=== PATIENT | female | born 1985 ===

== ENCOUNTER 2017-10-09 14:25 | Inpatient (IN) ==
--- OUTSIDE RECORDS SUMMARY | 2017-10-09 18:03 | External Medical Summary | Continuity of Care Document ---
:1985 Author Organization [facility] Address [address] [place], [place] [id number] Phone Allergies, Adverse Reactions, Alerts Substance Reaction Severity Status No Known Drug Allergies Unknown Active Medications Medication Instructions Dosage Effective Dates (start - stop) Status Comments Drug Treatment Unknown Problems Condition Effective Dates (start - stop) Clinical Status Suprvsn of preg w poor reprodctv or - obstet hx, second tri 19 weeks gestation of - Suprvsn of preg w poor reprodctv or - obstet hx, second tri Encounter for suprvsn of normal - , second trimester 19 weeks gestation of - Suprvsn of preg w poor reprodctv or - obstet hx, second tri Encounter for suprvsn of normal - , second trimester 14 weeks gestation of - Procedures Procedure Date Detailed Compled OB Ultrasound, Single Fetus Results Test Name Date and Time Measure Units Reference Range Abnormal Flag Comments Unknown Advance Directives Directive Yes / No Effective Date File Name Unknown Encounters Encounter Practice Location Reason(s) Diagnoses Date Provider Care Team Description For Visit Members [facility] Suprvsn of Milner In [facility] preg w poor 7-201 [facility] [place], reprodctv or 7 [address], obstet hx, Medical [place], [place], [facility] [id number], Gala Richter [facility] for suprvsn 120, tel:[phone] of normal Lazaro, [address] , [place], [facility] [id number] [email or web address] , [place]. weeks tel:+31 gestation of [phone] [facility] Suprvsn of Milner In Womens Ultrasound preg w poor 7- Monserrat. Health PA, reprodctv or 7 700 [address], obstet hx, Medical [place], [place], second [facility] [id number], weeks , Gerald gestation of 120, tel:+[phone] Lazaro [address] [place], [id number] , [place]. tel: [phone] [facility] Suprvsn of Milner Referring In Womens preg w poor 1-201 Monserrat. Provider: Health PA, reprodctv or 7 700 Monserrat Milner [address], obstet hx, Medical K, 700 [place], [place], [facility] [id number], triEncskylar Richter, [facility] for suprvsn 120, Gerald 120, tel:[phone] of normal Lazaro [place], [address] , [place], [place], second [id number]. [email or web address] , [place]. tel:316 weeks tel: [phone] gestation of [id number] Family History Family Member Diagnosis Age At Onset Paternal Grandmother Stroke No family history of Uterine Cancer No family history of Pulmonary Embolism No family history of Ovarian Cancer Father Hypertension No family history of Colon Cancer No family history of Breast Cancer Paternal aunt Thrombosis 40 Immunizations Vaccine Date Status Comments Influenza, injectable, completed Source: New Immunization Record quadrivalent, preservative free, 3 yrs or older Payers Payer name Insurance type Covered libertarian ID Authorization(s) [facility] [id number] Medicaid [facility] [id number] Medicaid Social History Type Description Quantity Date Captured Unknown Vital Signs Date / Height Weight BMI Pulse Blood Temperature Respiratory Body Head BMI Time: Rate Pressure Rate Surface Circumference percentile Area Unknown Chief Complaint And Reason For Visit Unknown Chief Complaint And Reason For Visit Reason For Referral Reason For Referral Unknown Plan Of Care Date Type Action Status Appointment Kayleigh Hathaway BOOKED Future Order: Radiology Order OB Detailed Complete Ultrasound Ordered ([id number]) Date Type Problem Goal Intervention Status Start Date Unknown. History Of Present Illness Encounter Date Complaint History Of Present Illness This patient has no known history of present illness Functional Status Encounter Date Functional Assessment Cognitive Assessment Unknown Medications Administered Medication Instructions Dosage Effective Dates (start - stop) Status Comments Drug Treatment Unknown Instructions Date Instruction Additional Information HIV and other routine tests risk factors identified by history anticipated course of care nutrition and weight gain counseling, special diet toxoplasmosis precautions (cats / raw meat) exercise indications for ultrasound influenza vaccine environmental / work hazards travel tobacco (ask, advise, assess, assist and arrange) alcohol illicit / recreational drugs use of any medications (including supplements, vitamins, herbs, OTC drugs) smoking counseling domestic violence seat belt use genetic testing new ob handbook Zika virus assessment & precautions dentist, wt gain 25-30#
--- OUTSIDE RECORDS SUMMARY | 2017-10-09 18:03 | External Medical Summary | Continuity of Care Document ---
:1985 Author Organization [facility] Address [address] [place], [place] [id number] Phone Allergies, Adverse Reactions, Alerts Substance Reaction Severity Status No Known Drug Allergies Unknown Active Medications Medication Instructions Dosage Effective Dates Status Comments (start - stop) 28 mg take 1 tablet by Not Available - Active iron-800 mcg oral route every tablet day Problems Condition Effective Dates (start - stop) Clinical Status Suprvsn of preg w poor reprodctv or - obstet hx, second tri Encounter for suprvsn of normal - , second trimester 24 weeks gestation of - Suprvsn of preg [...] second trimester 14 weeks gestation of - Suprvsn of preg w poor reprodctv or - obstet hx, third tri Supervision of other high risk - pregnancies, third trimester 31 weeks gestation of - Supervision of other high risk - pregnancies, third trimester 29 weeks gestation of - Procedures Procedure Date Unknown Results Test Name Date and Time Measure Units Reference Range Abnormal Flag Comments Unknown Advance Directives Directive Yes / No Effective Date File Name Unknown Encounters Encounter Practice Location Reason(s) Diagnoses Date Provider Care Team Description For Visit Members Linda [place] Suprvsn of preg Mar-2 Milner In Womens w poor 6- Monserrat. Health PA, reprodctv or 8 700 [address], obstet hx, [place], [place], [facility] [id number], triSupervision , [facility] of other high 120, tel:[phone] risk Lazaro, [address] [facility], [place], [facility] [id number] , [place]. weeks gestation tel: of [phone] Linda [place] Mar-0 Milner In Womens 8- Monserrat. Health PA, 8 700 [address], [place], [place], [place] [id number], Dr [facility] 120, tel:+[phone] Lazaro [address] [place], [id number] , [place]. tel: [phone] Linda [place] Supervision of Mar-0 Milner Referring In Womens other high risk Monserrat. Provider: Health PA, pregnancies, 8 700 Monserrat Milner [address], [facility] K, 700 [place], [place], [id number] [facility] [id number], weeks gestation , [facility] of 120, Gerald 120, tel:+[phone] Lazaro [place], [address] [place], [place], [id number]. , [place]. tel:+316 tel: [phone] Linda [place] Suprvsn of preg Ernie-3 Milner In Womens w poor - Monserrat. Health PA, reprodctv or 8 700 [address], obstet hx, [place], [place], [facility] [id number], Gala Richter, [facility] for suprvsn of 120, tel:[phone] normal Lazaro, [address] , [place], second [id number] [email or web address] , [place]. weeks gestation tel: of [phone] Linda [place] Suprvsn of preg Dec-2 Milner In Womens w poor - Monserrat. Health PA, reprodctv or 7 700 [address], obstet hx, [place], [place], [facility] [id number], Gala Richter, [facility] for suprvsn of 120, tel:+21 normal Lazaro, [address] , [place], second [id number] , [place]. weeks gestation tel: of [phone] [facility] Suprvsn of preg Dec-2 Milner In Womens Ultrasound w poor 7-201 Monserrat. Health PA, reprodctv or 7 [address], obstet hx, Medical [place], [place], second tri19 Center [id number], weeks gestation Gerald Richter [place] of 120, tel:+21 Lazaro, [address] [place], [id number] , [place]. tel: [phone] [facility] Suprvsn of preg Nov-2 Milner Referring In Womens w poor 1- Monserrat. Provider: Health PA, reprodctv or 7 700 Monserrat Milner [address], obstet hx, Medical K, 700 [place], [place], [facility] [id number], Gala Richter, [facility] [place] for suprvsn of 120, Gerald 120, tel:+21 normal Lazaro [place], [address] , [place], [place], second [id number] [id number]. [email or web address] , [place]. tel:+316 weeks gestation tel: [phone] of [id number] Family History Family Member Diagnosis Age At Onset Paternal Grandmother Stroke No family history of Uterine Cancer No family history of Pulmonary Embolism No family history of Ovarian Cancer Father Hypertension No family history of Colon Cancer No family history of Breast Cancer Paternal aunt Thrombosis 40 Immunizations Vaccine Date Status Comments Tdap completed Source: New Immunization Record Influenza, injectable, completed Source: New Immunization Record quadrivalent, preservative free, 3 yrs or older Payers Payer name Insurance type Covered libertarian ID Authorization(s) [facility] - [id number] Medicaid [employer] - [id number] Medicaid [employer] [place] [id number] Medicaid Social History Type Description Quantity Date Captured Unknown Vital Signs Date / Height Weight BMI Pulse Blood Temperature Respiratory Body Head BMI Time: Rate Pressure Rate Surface Circumference percentile Area Unknown Chief Complaint And Reason For Visit Unknown Chief Complaint And Reason For Visit Reason For Referral Reason For Referral Unknown Plan Of Care Date Type Action Status Appointment Kayleigh Hathaway BOOKED Appointment Kayleigh Hathaway BOOKED Appointment Kayleigh Hathaway BOOKED Appointment Kayleigh Hathaway BOOKED Appointment Kayleigh Hathaway BOOKED Future Order: Radiology Order OB Detailed Complete Ultrasound Ordered ([id number]) Date Type Problem Goal Intervention Status Start [...]
--- OUTSIDE RECORDS SUMMARY | 2017-10-09 18:03 | External Medical Summary | Continuity of Care Document ---
:1985 Author Organization [facility] Address [address] [place], [place] [id number] Phone Allergies, Adverse Reactions, Alerts Substance Reaction [...] preg Mar-2 Milner In Womens w poor 6-201 Monserrat. Health PA, reprodctv or 8 700 [address], obstet hx, [place], [place], [facility] [id number], triSupervision , [facility] of other high 120, tel:[phone] risk Lazaro, [address] [facility], [place], [facility] [id number] [email or web address] , [place]. weeks gestation tel: of [phone] Linda [place] Mar-2 Milner In Womens 3-201 Monserrat. Health PA, 8 700 [address], [place], [place], [place] [id number], Dr [facility] 120, tel:+[phone] Lazaro [address] [place], [id number] , [place]. tel: [phone] Linda [place] Supervision of Mar-0 Milner Referring In Womens other high risk 6- Monserrat. Provider: Health PA, pregnancies, 8 700 Monserrat Milner [address], [facility] Medical K, 700 [place], [place], [email or web address] [facility] [id number], weeks gestation , [facility] of 120, Gerald 120, tel:+[phone] Lazaro [place], [address] [place], [id number]. , [place]. tel:+316 tel: [phone] Linda [place] Suprvsn of preg Ernie-3 Milner In Womens w poor 1-201 Monserrat. Health PA, reprodctv or 8 700 [address], obstet hx, [place], [facility] [id number], Gala Richter, [facility] for suprvsn of 120, tel:[phone] normal Lazaro, [address] , [place], second [email or web address] , [place]. weeks gestation tel: of [phone] Linda [place] Suprvsn of preg Dec-2 Milner In Womens w poor 7-201 Monserrat. Health PA, reprodctv or 7 700 [address], obstet hx, [place], [place], [facility] [id number], Gala Richter, [facility] for suprvsn of 120, tel:+21 normal Lazaro, [address] , [place], second [id number] [email or web address] , [place]. weeks gestation tel: of [phone] [facility] Suprvsn of preg Dec-2 Milner In Womens Ultrasound w poor 7-201 Monserrat. Health PA, reprodctv or 7 700 [address], obstet hx, Medical [place], second tri19 Center [id number], weeks gestation Gerald Richter [place] of 120, tel:+21 Lazaro, [address] [place], [id number] , [place]. tel: [phone] [facility] Suprvsn of preg Nov-2 Milner Referring In Womens w poor 1- Monserrat. Provider: Health PA, reprodctv or 7 700 Monserrat Milner [address], obstet hx, Medical K, 700 [place], [place], [facility] [id number], Gala Richter, [facility] [place] for suprvsn of 120, Gerald 120, tel:+21 normal Lazaro [place], [address] , [place], [place], second [id number]. [email or web address] , [place]. tel:+316 weeks gestation tel: [phone] of [id number] Family History Family Member Diagnosis Age At [...] older Payers Payer name Insurance type Covered democrat ID Authorization(s) [facility] - [id number] Medicaid [employer] - [id number] Medicaid [employer] [place] [id number] Medicaid Social History Type Description Quantity Date [...] Radiology Order OB Detailed Complete Ultrasound Ordered ([id number]) Date Type Problem Goal Intervention Status Start [...]
--- OUTSIDE RECORDS SUMMARY | 2017-10-09 18:03 | External Medical Summary | Continuity of Care Document ---
:1985 Author Organization [facility] Address [address] [place], [place] [phone] Phone Allergies, Adverse Reactions, Alerts Substance Reaction Severity Status No Known Drug Allergies Unknown Active Medications Medication Instructions Dosage Effective Dates Status Comments (start - stop) Tylenol 325 mg tablet take 1 tablet by oral - Active route every 4 hours as needed as needed Problems Condition Effective Dates (start - stop) Clinical Status Encounter for suprvsn of normal - , third trimester 36 weeks gestation of - Suprvsn of preg [...] third trimester 29 weeks gestation of - Encounter for suprvsn of normal - , third trimester Encounter For Screening For - Streptococcus B 36 weeks gestation of - Encounter for suprvsn of normal - , third trimester 35 weeks gestation of - Procedures Procedure Date Unknown Results Test Name Date and Time Measure Units Reference Range Abnormal Flag Comments Unknown Advance Directives Directive Yes / No Effective Date File Name Unknown Encounters Encounter Practice Location Reason(s) Diagnoses Date Provider Care Team Description For Visit Members [facility] Encounter for Apr-3 Milner In Womens suprvsn of normal 0-201 Monserrat. Health PA, , third 8 700 [address] [email or web address] weeks Medical 1522, gestation of [facility] Gerald Richter, 120, , [place], [place], tel:[phone] , [place]. tel: [phone] Linda [place] Encounter for Apr-2 Milner In Womens suprvsn of normal 4-201 Monserrat. Health PA, , third 8 700 [address] trimesterEncounte Medical 1522, r For [facility], Screening For Gerald Richter, Streptococcus B36 120, [id number], weeks gestation [place], of [place], tel:[phone] , [place]. tel: [phone] Linda [place] Encounter for Apr-1 Milner In Womens suprvsn of normal 7-201 Monserrat. Health ROBB, , third 8 700 [address] [email or web address] weeks Medical 1522, gestation of [facility] Gerald Richter, 120, [id number], [place], tel:[phone] , [place]. tel: [phone] Linda [place] Apr-1 Milner In Womens 1-201 Monserrat. Health PA, 8 700 PO Box Medical 1522, [facility], Gerald Richter, 120, [id number], [place], tel:[phone] , [place]. tel: [phone] Linda [place] Suprvsn of preg w Mar-2 Milner In Womens poor reprodctv or 6-201 Monserrat. Health ROBB, obstet hx, third 8 700 PO Box triSupervision of Medical 1522, other high risk [facility], pregnancies, Gerald Richter, third [id number] 120, [id number], weeks gestation [place], [place] of [place], tel: [phone] , [place]. tel: [phone] [facility] Supervision of Mar-0 Milner Referring In Womens other high risk 6-201 Monserrat. Provider: Health ROBB, pregnancies, 8 700 Monserrat Milner PO Box third [id number] Medical K, 700 1522, weeks gestation [facility], of , [facility] [place], 120, Gerald 120, , Lazaro [place], [place], [place], tel:[phone] [id number]. , [place]. tel: tel: [phone] [facility] Suprvsn of preg w Ernie-3 Milner In Womens poor reprodctv or 1-201 Monserrat. Health ROBB, obstet hx, second 8 700 [address] Box triEncounter for Medical 1522, suprvsn of normal [facility], , second Gerald Richter, [email or web address] weeks 120, , gestation of [facility] [place], tel: [phone] , [place]. tel: [phone] [facility] Suprvsn of preg w Dec-2 Milner In Womens poor reprodctv or 7-201 Monserrat. Health ROBB, obstet hx, second 7 700 [address] Box triEncounter for Medical 1522, suprvsn of normal [facility], , second Gerald Richter, [email or web address] weeks 120, [id number], gestation of [place], [place], tel:[phone] , [place]. tel: [phone] [facility] Suprvsn of preg w Dec-2 Milner In Womens Ultrasound poor reprodctv or 7-201 Monserrat. Health ROBB, obstet hx, second 7 700 [address] tri19 weeks Medical 1522, gestation of [facility], Gerald Richter, 120, [id number], [place], [place], tel: [phone] , [place]. tel: [phone] Associates [place] Suprvsn of preg w Nov- Milner Referring In Womens poor reprodctv or 1-201 Monserrat. Provider: pita Vaughn hx, second 7 700 Monserrat Milner PO Box [facility] K, 700 1522, supr[facility]n of [facility] [place], , second Dr, [facility] Center Dr [id number], weeks 120, Gerald 120, , gestation of Lazaro [place], ANNE, ANNE, tel: [phone] [id number]. , [place]. tel: tel: [phone] Family History Family Member Diagnosis Age At [...] older Payers Payer name Insurance type Covered alliance party ID Authorization(s) [facility] - [id number] Medicaid [employer] [place] [id number] Medicaid [employer] [place] [id number] Medicaid Social History Type Description Quantity Date [...] Radiology Order OB Detailed Complete Ultrasound Ordered ([id number]) Date Type Problem Goal Intervention Status Start Date Unknown. History Of Present Illness Encounter Date Complaint History Of Present Illness This patient has no known history of present illness Functional Status Encounter Date Functional Assessment Cognitive Assessment Unknown Medications Administered Medication Instructions Dosage Effective Dates (start - stop) Status Comments Drug Treatment Unknown Instructions Date Instruction Additional Information labor signs group B strep screening HIV and other routine tests risk factors [...]
--- OUTSIDE RECORDS SUMMARY | 2017-10-09 18:04 | External Medical Summary ---
:1985 Author Name GENERATED, SYSTEM Care Team Providers Name Role Phone UNASSIGNED DOCTOR MD EUGENIA DOCTOR Primary Care Provider [phone] Reason For Visit Chief Complaint 37 WEEKS - CONTRACTIONS Social History Functional Status Vital Signs Results Problems Encounter Diagnosis No relevant problems exist. Encounters Encounter Diagnosis No relevant problems exist. Plan of Care Procedures Completed , on 02/28/2009 12:00 AM Immunizations No immunizations administered or ordered. Hospital Course Hospital Discharge Instructions Allergies, Adverse Reactions, Alerts This section is client services representative of the current allergy information, at the time of the CCD generation. In the case of regeneration of the CCD, the allergy information may not reflect the state of known allergies at the time of the CCD' s subject visit. Latex Allergy has not been assessed.IV Contrast Allergy has not been assessed. Medication Medication reconciliation has not been performed.
--- OUTSIDE RECORDS SUMMARY | 2017-10-09 18:04 | External Medical Summary | Continuity of Care Document ---
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 Health PA, reprodctv or 8 700 [address], obstet , [place], [place], [facility] [id number], triSupervision , [facility] of other high 120, tel:+[phone] risk Lazaro, [address] [place], [place], [facility] [id number] , [place]. weeks gestation tel:+06-28 of [phone] Linda [place] Supervision of Mar-0 Milner Referring In Womens other high risk Monserrat. Provider: Health PA, pregnancies, 8 700 Monserrat Milner [address], [facility], 700 [place], [place], [id number] Center [facility] [id number], weeks gestation , [facility] [place] of 120, Gerald 120, tel:+[phone] Lazaro [place], [address] [place], [place], [id number]. , [place]. tel: tel: [phone] [facility] Suprvsn of preg Ernie-3 Milner In Womens w poor - Monserrat. Health PA, reprodctv or 8 700 [address], obstet hx, [place], [facility] [id number], Gala Richter [facility] for suprvsn of 120, tel:+[phone] normal Lazaro, [address] , [place], second [id number] , [place]. weeks gestation tel:+06-28 of [phone] [facility] Suprvsn of preg Dec-2 Milner In Womens w poor - Monserrat. Health PA, reprodctv or 7 700 [address], obstet [place], [facility] [id number], Gala Richter [facility] for suprvsn of 120, tel:+[phone] normal Lazaro, [address] , [place], second [id number] , [place]. weeks gestation tel:+06-28 of [phone] Linda [place] Suprvsn of preg Dec-2 Milner In Womens Ultrasound w poor 7- Monserrat. Health PA, reprodctv or 7 700 [address], obstet hx, Medical [place], [place], second [facility] [id number], weeks gestation , Gerald of 120, tel:+[phone] Lazaro, [address] [place], [id number] , [place]. tel: [phone] Linda [place] Suprvsn of preg Nov-2 Milner Referring In Womens w poor 1- Monserrat. Provider: Health PA, reprodctv or 7 700 Monserrat Milner [address], obstet hx, Medical K, 700 [place], [place], second Center Medical [id number], [facility] , [facility] [place] for suprvsn of 120, Gerald 120, tel:+[phone] normal Lazaro [place], [address] , [place], [place], second [id number]. , [place]. tel:+316 weeks gestation tel: [phone] of [id number] Family History Family Member Diagnosis Age At [...] older Payers Payer name Insurance type Covered green party ID Authorization(s) [facility] [id number] Medicaid [employer] [place] [id number] Medicaid [employer] [place] [id number] Medicaid Social History Type Description Quantity Date Captured Alcohol Use Details No Caffeine Use Details Unknown Tobacco Use Status Smoking Status Former smoker Vital Signs Date / Height Weight BMI Pulse Blood Temperature Respiratory Body Head BMI Time: Rate Pressure Rate Surface Circumference percentile Area 189.80 33.6 109/69 -2018 lbs 2 mm[Hg] 4:18 kg/m PM eter (2) 33.4 -2018 9 4:10 kg/m PM eter (2) Chief Complaint And Reason For Visit Unknown Chief Complaint And Reason For Visit Reason For Referral Reason For Referral Unknown Plan Of Care Date Type Action Status Appointment MagKayleigh BOOKED Appointment Mag, Kayleigh BOOKED Appointment MagKayleigh BOOKED Appointment Mag, Kayleigh BOOKED Appointment MagKayleigh BOOKED Future Order: Radiology Order OB Detailed Complete Ultrasound Ordered ([id number]) Date Type Problem Goal Intervention Status Start [...]
--- OUTSIDE RECORDS SUMMARY | 2017-10-09 18:04 | External Medical Summary | Continuity of Care Document ---
:1985 Author Organization [facility] Address [address] [place], [place] [address] Phone Allergies, Adverse Reactions, Alerts Substance Reaction [...] PA, , third 8 700 [email or web address] weeks Medical 1522, gestation of [facility] Gerald Richter, 120, , [place], [place], tel:[phone] , [place]. tel: [phone] Associates [facility] Encounter for Apr-2 Milner In Womens suprvsn of normal 4-201 Monserrat. Health PA, , third 8 700 [address] trimesterEncounte Medical 1522, r For [facility], Screening For Gerald Richter, Streptococcus B36 120, , weeks gestation [place], of [place], tel:[phone] , [place]. tel:[phone] Associates [facility] Encounter for Apr-1 Milner In Womens suprvsn of normal 7-201 Monserrat. Health PA, , third 8 700 [address] [email or web address] weeks Medical 1522, gestation of [facility] Gerald Richter, 120, [id number], [place], tel:[phone] , [place]. tel: [phone] Linda [place] Apr-1 Milner In Womens 0-201 Monserrat. Health PA, 8 700 [address] Medical 1522, [facility], Gerald Richter, 120, [id number], [place], tel:[phone] , [place]. tel: [phone] Linda [place] Suprvsn of preg w Mar-2 Milner In Womens poor reprodctv or 6-201 Monserrat. Health ROBB, obstet hx, third 8 700 [address] triSupervision of Medical 1522, other high risk [facility], pregnancies, Gerald Richter, third [email or web address] 120, [id number], weeks gestation [place], [place], tel: [phone] , [place]. tel: [phone] Associates [facility] Supervision of Mar-0 Milner Referring In Womens other high risk 6-201 Monserrat. Provider: Health ROBB, pregnancies, 8 700 Monserrat Milner PO Box third [email or web address] Medical K, 700 1522, weeks gestation [facility], of , [facility] [place], 120, Gerald 120, , Lazaro [place], [place], [place], tel:[phone]. , [place]. tel: tel: [phone] [facility] Suprvsn of preg w Ernie-3 Milner In Womens poor reprodctv or 1-201 Monserrat. Health ROBB, obstet hx, second 8 700 PO Box triEncounter for Medical 1522, suprvsn of normal [facility], , second Gerald Richter, [email or web address] weeks 120, , gestation of [facility] [place], tel: [phone] , [place]. tel: [phone] [facility] Suprvsn of preg w Dec-2 Milner In Womens poor reprodctv or 7-201 Monserrat. Health ROBB, obstet hx, second 7 700 PO Box triEncounter for Medical 1522, suprvsn of normal [facility], , second Gerald Richter, [email or web address] weeks 120, [id number], gestation of [place], [place], tel:[phone] , [place]. tel: [phone] [facility] Suprvsn of preg w Dec-2 Milner In Womens Ultrasound poor reprodctv or 7-201 Monserrat. Health ROBB, obstet hx, second 7 700 [address] tri19 weeks Medical 1522, gestation of [facility], Gerald Richter, 120, [id number], [place], tel: [phone] , [place]. tel: [phone] Associates [place] Suprvsn of preg w Nov- Milner Referring In Womens poor reprodctv or 1-201 Monserrat. Provider: pita Vaughn hx, second 7 700 Monserrat Milner PO Box [facility] K, 700 1522, suprvsn of [facility], , second Dr, [facility] Center Dr RODRÍGUEZ, [email or web address] weeks 120, Gerald 120, , gestation of Lazaro [place], ANNE, ANNE, tel: [phone]. , [place]. tel: tel: [phone] Family History Family Member Diagnosis Age At [...] Insurance type Covered alliance party ID Authorization(s) [facility] - [id number] Medicaid [employer] [facility] [place] [id number] Medicaid [employer] [facility] [place] [id number] Medicaid Social History Type Description Quantity Date [...] Radiology Order OB Detailed Complete Ultrasound Ordered ([id number]) Date Type Problem Goal Intervention Status Start [...]
--- OUTSIDE RECORDS SUMMARY | 2017-10-09 18:04 | External Medical Summary | Continuity of Care Document ---
:1985 Author Organization [facility] Address [address] [place], [place] [address] Phone Allergies, Adverse Reactions, Alerts Substance Reaction Severity Status No Known Drug Allergies Unknown Active Medications Medication Instructions Dosage Effective Dates Status Comments (start - stop) 28 mg take 1 tablet by Not Available - Active iron-800 mcg oral route every tablet day Problems Condition Effective Dates (start - stop) Clinical Status Supervision of other high risk - pregnancies, third trimester 29 weeks gestation of - Suprvsn of preg [...] third trimester 31 weeks gestation of - Procedures Procedure Date Immuniz admnin, 1 vac, sngl/combo 19 Yrs + TDAP VACCINE >7 IM OB Visit No Charge Results Test Name Date and Time Measure Units Reference Range Abnormal Flag Comments Panel Description: Glucose [Mass/volume] in Serum or Plasma --1 hour post 50 g glucose PO Gestational Diabetes 16:22:00 79 mg/dL 65-139 According to ADA, a glucose Screen threshold of >139 mg/dL after 50-gramload identifies approximately 80% of women with gestationaldiabetes mellitus, while the sensitivity is further increased toapproximately 90% by a threshold of >129 mg/dL. Panel Description: Hemoglobin [Mass/volume] in Blood Hemoglobin 16:22:00 11.0 g/dL 11.1-15.9 L Panel Description: Hematocrit [Volume Fraction] of Blood by Automated count Hematocrit 16:22:00 34.6 % 34.0-46.6 Advance Directives Directive Yes / No Effective Date File Name Unknown Encounters Encounter Practice Location Reason(s) Diagnoses Date Provider Care Team Description For Visit Members Linda Geen of preg Jul-2 Milner In Womens w poor 6- Monserrat. Health PA, reprodctv or 8 700 [address], [place], [facility] [id number], triSupervision Dr [facility] of other high 120, tel:21 risk Lazaro, [address] [place], [place], [facility] [id number] , [place]. weeks gestation tel: of [phone] Linda [place] Supervision of Jul-0 Milner Referring In Womens other high risk -201 Monserrat. Provider: Health PA, pregnancies, 8 700 Monserrat Milner [address], [facility] Medical K, 700 [place], [place], [email or web address] [facility] [id number], weeks gestation , [facility] of 120, Gerald 120, tel:21 Lazaro [place], [address] [place], [place], [id number]. , [place]. tel: tel: [phone] Linda [place] Suprvsn of preg May- Milner In Womens w poor 1-201 Monserrat. Health PA, reprodctv or 8 700 [address], obstet hx, [place], [place], [facility] [id number], Gala Richter, [facility] for suprvsn of 120, tel:+[phone] normal Lazaro, [address] , [place], [facility] [id number] [email or web address] , [place]. weeks gestation tel:[phone] of [phone] Associates [facility]ra[facility] Suprvsn of preg Dec-2 Milner In Womens w poor 7-201 Monserrat. Health PA, reprodctv or 7 700 [address], obstet hx, [place], [place], [facility] [id number], Gala Richter, [facility] for suprvsn of 120, tel:[phone] normal Lazaro, [address] , [place], second [phone] [email or web address] , [place]. weeks gestation tel: of [phone] [facility] Suprvsn of preg Dec-2 Milner In Womens Ultrasound w poor 7- Monserrat. Health PA, reprodctv or 7 700 [address], obstet hx, [place], [place], [facility] tri19 Center [id number], weeks gestation Gerald Richter of 120, tel:[phone] L[place], [address] [place], [id number] , [place]. tel: [phone] [facility] Suprvsn of preg Nov-2 Milner Referring In Womens w poor 1- Monserrat. Provider: Health PA, reprodctv or 7 700 Monserrat Milner [address], obstet hx, Medical , [address] [place] [address], [facility] [id number], Gala Richter, [facility] for suprvsn of 120, Gerald 120, tel:[phone] normal Lazaro [place], [address] , [place], [place], second [id number]. [email or web address] , [place]. tel:316 weeks gestation tel: [phone] of [phone] Family History Family Member Diagnosis Age At [...] name Insurance type Covered democrat ID Authorization(s) [facility] - [id number] Medicaid [employer] - [id number] Medicaid [employer] [place] [id number] Medicaid Social History Type Description Quantity Date Captured Alcohol Use Details No Caffeine Use Details Tobacco Use Status Smoking Status Former smoker Vital Signs Date / Height Weight BMI Pulse Blood Temperature Respiratory Body Head BMI Time: Rate Pressure Rate Surface Circumference percentile Area 189.10 33.4 / lbs 9 mm[Hg] 4:18 kg/m PM eter (2) 32.2 5 4:13 kg/m PM eter (2) Chief Complaint And Reason For Visit Unknown Chief Complaint And Reason For Visit Reason For Referral Reason For Referral Unknown Plan Of Care Date Type Action Status Appointment Mag, Kayleigh BOOKED Appointment Mag, Kayleigh BOOKED Appointment Mag, Kayleigh BOOKED Appointment Mag, Kayleigh BOOKED Appointment Mag, Kayleigh BOOKED Future Order: Radiology Order OB Detailed Complete Ultrasound Ordered ([id number]) Date Type Problem Goal Intervention Status Start [...]
--- OUTSIDE RECORDS SUMMARY | 2017-10-09 18:04 | External Medical Summary | Continuity of Care Document ---
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 [place], reprodctv or 7 700 [address], obstet hx, Medical [place], [place], [facility] Center [id number], Gala Richter [facility] for suprvsn 120, tel:+[phone] of normal Lazaro, [address] , [place], [facility] [id number] , [place]. weeks tel:+31 gestation of [phone] [facility] Suprvsn of Milner In Womens Ultrasound preg w poor 7-201 Monserrat. Health PA, reprodctv or 7 700 [address], obstet hx, Medical [place], [place], second [facility] Center [id number], weeks , [facility] gestation of 120, tel:+[phone] [place] [address] [place], [id number] , [place]. tel: [phone] [facility] Suprabyn of Milner Referring In Womens preg w poor 1-201 Monserrat. Provider: Health PA, reprodctv or 7 700 Monserrat Milner [address], obstet hx, Medical , 700 [place], [place], [facility] [id number], triEncounter , [facility] for suprvsn 120, Gerald 120, tel:[phone] of normal Lazaro [place], [address] , [place], [place], second [id number]. [email or web address] , [place]. tel:316 weeks tel: [phone] gestation of [id number] Family History Family Member Diagnosis Age At [...] Insurance type Covered green party ID Authorization(s) [facility] [id number] Medicaid [facility] [id number] Medicaid Social History Type Description Quantity Date Captured Alcohol Use Details No Caffeine Use Details Unknown Tobacco Use Status Smoking Status Former smoker Vital Signs Date / Height Weight BMI Pulse Blood Temperature Respiratory Body Head BMI Time: Rate Pressure Rate Surface Circumference percentile Area 176.40 31.2 / lbs 4 mm[Hg] 8:35 kg/m AM eter (2) Chief Complaint And Reason For Visit Unknown Chief Complaint And Reason For Visit Reason For Referral Reason For Referral Unknown Plan Of Care Date Type Action Status Appointment Mag, Kayleigh BOOKED Future Order: Radiology Order OB Detailed Complete Ultrasound Ordered ([id number]) Date Type Problem Goal Intervention Status Start [...] ob handbook Zika virus assessment & precautions dentistkavon gain 25-30#
--- OUTSIDE RECORDS SUMMARY | 2017-10-09 18:04 | External Medical Summary ---
:1985 Author Organization [employer] Care Team Providers Name Role Phone Cheryl Batres Provider Role Unavailable Allergies, Adverse Reactions, Alerts Substance Reaction Event Type N.K.D.A. Info Not Available Non Drug Allergy Problems Problem Type Condition Code Onset Dates Condition Status Assessment Encounter for school history and Z02.0 Active physical examination Medications No Known Medications Procedures Procedure Coding System Code Date VARICELLA-ZOSTER ANTIBODY CPT-4 38134 Apr 19, 2016 ROUTINE VENIPUNCTURE CPT-4 97428 Apr 19, 2016 OFFICE VISIT NEW PATIENT LEVEL 2 CPT-4 50626 Apr 19, 2016 Vital Signs Date/Time: Apr 19, 2016 BMI 27.60 Index Weight 155.8 lbs Height 63 in Blood Pressure Diastolic 68 mm Hg Blood Pressure Systolic 104 mm Hg Cardiac Monitoring Heart Rate 80 /min Temperature 98.1 F Oximetry 97 % Respiratory Rate 16 /min Results Name Result Date Reference Range Unit Abnormality Flag Venipuncture Varicella Zoster IGG ----Varicella Zoster IgG 2.36 [id number] >1.09 OD Ratio Index ----MMRV Interpretation - [id number] ----Varicella Zoster IGG Positive [id number] Summary Purpose e[employer]Works Submission
--- OUTSIDE RECORDS SUMMARY | 2017-10-09 18:04 | External Medical Summary | Continuity of Care Document ---
:1985 Author Organization [facility] Allergies Active Description Code Type Severity Reaction Onset Reported/ Identified Relationship Clinical to Patient Status Yes No Known 81474 3 N/A N/A Drug 0 Allergies Medications Medication Packaging Start Date Stop Date Route Dosage Sig Gram 06/28/2017 TERCONAZOLE 8 insert 1 applicatorful by vaginal route every day for 7 days at bedtime Tablet 09/12/2017 take AMOXICILLIN 8 1 tablet by oral route every 8 hours Problems Date Dx Attending Type Code Diagnosis Diagnosed By Coded 05/31/2016 A Z11.1 Screening for PATO ARNDT respiratory TB 06/03/2016 A Z11.1 Screening for MAXIME, JUVENAL respiratory TB 08/04/2016 A Z11.1 Screening for MAXIME, JUVENAL respiratory TB 05/24/2017 Monserrat Milner O09.292 Suprvsn of preg w poor reprodctv or obstet hx, second tri 05/24/2017 Monserrat Milner Z3A.19 19 weeks gestation of 07/11/2017 Working Z02.1 Encounter for [place] pre-employment examination Procedures Code [place] [address] TB SKIN TEST HAIRASHVINA 05/31/2016 57123 NURSE PATO ARNDT 05/31/2016 VISIT/CONSULT 47001 TB SKIN TEST JUVENAL SWARTZ 08/04/2016 24742 NURSE JUVENAL SWARTZ 08/04/2016 VISIT/CONSULT 10097 OB US, 05/24/2017 DETAILED, SNGL FETUS N0781 Physical [place] 07/12/2017 Capacity Profile Results Test Result Range Genital Wet Prep - send out - 03/01/17 16:43 Genital Wet Prep Source: Genital NRG Collected: 03/01/17 16:43 Urine Culture - 03/01/17 16:46 Urine Culture Source: Urine NRG Collected: 03/01/17 16:46 Chlam/GC Male/Fem Oday-hk-Sshz Urine (genprobe) C-Z118,G-Z113 - 03/01/17 16:46 Chlam/ GC Nucleic Acid Screen Source: Genital NRG Collected: 03/01/17 16:46 Encounters ACCT No. Visit Discharge Status Pt. Type Provider Facility Loc./Unit Complaint Date/Time [id number] 09/24/2017 09/24/2017 MAYTE KEITH, 37 WEEKS - 66 21:38:00 22:44:05 eliseo TEE 39220 12/08/2003 Document 00:00:00 Registra tion [id number] 07/26/2017 Document 06:38:57 Registra tion [id number] 10/03/2017 10/03/2017 CLS Outpatie Milner, 15:50:00 23:59:59 nt Monserrat Myrick [id number] 09/26/2017 09/26/2017 CLS Outpatie Milner, 13:19:00 23:59:59 nt Monserrat Myrick [id number] 09/25/2017 09/25/2017 CLS Outpatie Milner, 13:15:00 23:59:59 nt Monserrat Myrick [id number] 09/19/2017 09/19/2017 CLS Outpatie Milner, 16:15:00 23:59:59 nt Monserrat Myrick [id number] 09/12/2017 09/12/2017 CLS Outpatie Milner, 16:00:00 23:59:59 nt Monserrat Myrick [id number] 09/06/2017 09/06/2017 CLS Outpatie Milner, 09:55:00 23:59:59 nt Monserrat Myrick [id number] 09/05/2017 09/05/2017 CLS Outpatie Milner, 13:54:00 23:59:59 nt Monserrat Myrick [id number] 08/21/2017 08/21/2017 CLS Outpatie Milner, 16:00:00 23:59:59 nt Monserrat Myrick [id number] 08/18/2017 08/18/2017 CLS Outpatie Milner, 12:05:00 23:59:59 nt Monserrat Myrick [id number] 08/03/2017 08/03/2017 CLS Outpatie Milner, 10:58:00 23:59:59 nt Monserrat Myrick [id number] 08/02/2017 08/02/2017 CLS Outpatie Milner, 09:34:00 23:59:59 nt Monserrat Myrick [id number] 08/01/2017 08/01/2017 CLS Outpatie Milner, 16:25:00 23:59:59 asmita Myrick [id number] 07/21/2017 07/21/2017 CLS Outpatie Milner, 09:24:00 23:59:59 asmita Myrick [id number] 06/28/2017 06/28/2017 CLS Outpatie Milner, 15:30:00 23:59:59 asmita Myrick [id number] 06/23/2017 06/23/2017 CLS Outpatie Milner, 09:38:00 23:59:59 asmita Myrick [id number] 06/21/2017 06/21/2017 CLS Outpatie Milner, 14:14:00 23:59:59 asmita Myrick [id number] 05/30/2017 05/30/2017 CLS Outpatie Milner, 16:20:00 23:59:59 asmita Myrick [id number] 05/24/2017 05/24/2017 CLS Outpatie Milner, 08:30:00 23:59:59 asmita Myrick [id number] 05/24/2017 05/24/2017 CLS Outpatie Milner, 08:15:00 23:59:59 asmita Myrick [id number] 04/27/2017 04/27/2017 CLS Outpatie Milner, 11:22:00 23:59:59 asmita Myrick [id number] 04/18/2017 04/18/2017 CLS Outpatie Milner, 10:00:00 23:59:59 asmita Myrick [id number] 03/01/2017 Document 17:15:00 Registra tion [id number] 03/01/2017 Document 16:00:00 Registra tion
--- OUTSIDE RECORDS SUMMARY | 2017-10-09 18:04 | External Medical Summary | Continuity of Care Document ---
:1985 Author Organization [facility] Address [address] [place], [place] [address] Phone Allergies, Adverse Reactions, Alerts Substance Reaction [...] admnin, 1 vac, sngl/combo 19 Yrs + Flu Vaccine - Quadrivalent No Charge Sonogram OB Visit No Charge Results Test Name Date and Time Measure Units Reference Range Abnormal Flag Comments Panel Description: OBSTETRIC PANEL WHITE BLOOD CELL 7.0 Thousand/uL 3.8-10.8 N COUNT 11:02:00 RED BLOOD CELL 3.76 Million/uL 3.80-5.10 L COUNT 11:02:00 HEMOGLOBIN 12.1 g/dL 11.7-15.5 N 11:02:00 HEMATOCRIT 36.1 % 35.0-45.0 N 11:02:00 MCV 96.0 fL 80.0-100.0 N 11:02:00 MCH 32.2 pg 27.0-33.0 N 11:02:00 MCHC 33.5 g/dL 32.0-36.0 N 11:02:00 RDW 11.8 % 11.0-15.0 N 11:02:00 PLATELET COUNT 164 Thousand/uL 140-400 N 11:02:00 MPV 11.2 fL 7.5-12.5 N 11:02:00 ABSOLUTE 5159 cells/uL 5405-1892 N NEUTROPHILS 11:02:00 ABSOLUTE 1232 cells/uL 850-3900 N LYMPHOCYTES 11:02:00 ABSOLUTE 476 cells/uL 200-950 N MONOCYTES 11:02:00 ABSOLUTE 112 cells/uL 15-500 N EOSINOPHILS 11:02:00 ABSOLUTE 21 cells/uL 0-200 N BASOPHILS 11:02:00 NEUTROPHILS 73.7 % N 11:02:00 LYMPHOCYTES 17.6 % N 11:02:00 MONOCYTES 6.8 % N 11:02:00 EOSINOPHILS 1.6 % N 11:02:00 BASOPHILS 0.3 % N 11:02:00 ANTIBODY SCREEN, NO ANTIBODIES N RBC W/REFL ID, 11:02:00 DETECTED Reference range TITER AND AG No antibodies detected This assay is a screening test for the detection of red blood cell antibodies. The test is not to be used for pretransfusion screening or for the medical management of an alloimmunized . ABO GROUP B 11:02:00 RH TYPE RH(D) 11:02:00 POSITIVE RPR (DX) W/REFL NON-REACTIVE NON-REACTIV N TITER AND 11:02:00 E CONFIRMATORY TESTING HEPATITIS B NON-REACTIVE NON-REACTIV N SURFACE ANTIGEN 11:02:00 E RUBELLA ANTIBODY 1.81 index N Index (IGG) 11:02:00 Interpretation ----- <0.90 Not consistent with Immunity 0.90-0.99 Equivocal > or=1.00 Consistent with Immunity The presence of rubella IgG antibody suggests immunization or past or current infection withrubella virus.Test performed at [facility] [id number] [place] [phone] r: NANCY ABRAMS DO,MPH Panel Description: HIV 1/2 ANTIGEN/ANTIBODY,FOURTH GENERATION W/RFL HIV NON-REACTIVE NON-REACTIVE N HIV-1 antigen and HIV-1/HIV- 2 antibodies were AG/AB, 11:02:00 notdetected. There is no laboratory evidence of 4TH GEN HIVinfection. PLEASE NOTE: This information has been disclosed toyou from records whose confidentiality may beprotected by state law. If your state requires suchprotection, then the state law prohibits you frommaking any further disclosure of the informationwithout the specific written consent of the personto whom it pertains, or as otherwise permitted by law.A general authorization for the release of medical orother information is NOT sufficient for this purpose. For additional information please refer tohttp://education.VaxInnate/faq/IUQ591(This link is being provided for informational/educational purposes only.) The performance of this assay has not been clinicallyvalidated in patients less than 2 years old. REPORT COMMENT:FASTING:NOTest performed at [facility] [id number] [place] [id number]: NANCY ABRAMS DO,MPH Panel Description: Bacteria identified in Urine by Culture CULTURE, URINE, SEE NOTE CULTURE, URINE, ROUTINE MICRO ROUTINE 11:20:00 NUMBER: [id number] TEST STATUS: FINAL SPECIMEN SOURCE: URINE SPECIMEN QUALITY: ADEQUATE RESULT: Multiple organisms present, each less than 10,000 CFU/mL. These organisms, commonly found on external and internal genitalia, are considered to be colonizers. No further testing performed.REPORT COMMENT:RFASTING:UNKNOWNTest performed at [facility] [id number] [place] [phone]: NANCY ABRAMS DO,MPH Advance Directives Directive Yes / No Effective Date File Name Unknown Encounters Encounter Practice Location Reason(s) Diagnoses Date Provider Care Team Description For Visit Members Linda Schultz of Milner Referring In Womens preg w Monserrat. 700 Provider: Health PA, reprodctv or Medical Monserrat Milner [address], obstet hx, Center Ramez Richter, 700 [place], [place], second Gerald 120, Medical [id number], [facility] Dr PELAYO for suprvsn of [place], Gerald 120, tel:+21 normal [id number], Lazaro, [address] , [place]. [place], second tel:+ [phone]. [id number] tel:+316 weeks [phone] gestation of Family History Family Member Diagnosis Age At [...] name Insurance type Covered democrat ID Authorization(s) [facility] - [id number] Medicaid [employer] - [id number] Medicaid Social History Type Description Quantity Date Captured Alcohol Use Details No Caffeine Use Details Tobacco Use Status Smoking Status Former smoker Non-Smoking Tobacco Use : No Details Available : No Details Available Details Vital Signs Date / Height Weight BMI Pulse Blood Temperature Respiratory Body Head BMI Time: Rate Pressure Rate Surface Circumference percentile Area 165.60 29.3 109/ lbs 3 mm[Hg] 10:14 kg/m AM eter (2) Chief Complaint And Reason For Visit Unknown Chief Complaint And Reason For Visit Reason For Referral Reason For Referral Unknown Plan Of Care Date Type Action Status Appointment MagKayleigh BOOKED Appointment Mag, Kayleigh BOOKED Date Type Problem Goal Intervention Status Start [...]
--- OUTSIDE RECORDS SUMMARY | 2017-10-09 18:04 | External Medical Summary | Continuity of Care Document ---
:1985 Author Organization [facility] [place] Address [address] [place], [place] [id number] Phone Allergies, Adverse Reactions, Alerts Substance Reaction Severity Status No Known Drug Allergies Unknown Active Medications Medication Instructions Dosage Effective Dates Status Comments (start - stop) Tylenol 325 mg take 1 tablet by - Active tablet oral route every 4 hours as needed as needed amoxicillin 500 mg take 1 tablet by 500 MG - No Longer tablet oral route every 8 Active hours Problems Condition Effective Dates (start - stop) Clinical Status Encounter for suprvsn of normal - , third trimester 35 weeks gestation of - Encounter for suprvsn [...] Streptococcus B 36 weeks gestation of - Procedures Procedure Date OB Visit No Charge Results Test Name Date and Time Measure Units Reference Range Abnormal Flag Comments Unknown Advance Directives Directive Yes / No Effective Date File Name Unknown Encounters Encounter Practice Location Reason(s) Diagnoses Date Provider Care Team Description For Visit Members Linda [place] Encounter for Apr-3 Milner In Womens suprvsn of normal 0-201 [facility]. [facility], , third 8 700 [address] [email or web address] weeks Medical 1522, gestation of [facility] Gerald Richter, 120, , [place], tel:[phone] , [place]. tel:[phone] Linda [place] Encounter for Apr-2 Milner In Womens suprvsn of normal 4-201 [facility]. [facility] [place], , third 8 700 [address] trimesterEncounte Medical 1522, r For [facility], Screening For Gerald iRchter, Streptococcus B36 120, [id number], weeks gestation [place], of [place], tel:[phone] , [place]. tel: [phone] Linda [place] Encounter for Apr-1 Milner In Womens suprvsn of normal 7-201 [place]. [facility] PA, , third 8 700 [address] [email or web address] weeks Medical 1522, gestation of [facility], Gerald Richter, 120, [id number], [place], tel:[phone] , [place]. tel:[phone] Linda [place] Suprvsn of preg w Mar-2 Milner In Womens poor reprodctv or 6-201 [facility]. [facility], obstet hx, third 8 700 [address] Box triSupervision of Medical 1522, other high risk [facility], pregnancies, Gerald Richter, third [email or web address] 120, [id number], weeks gestation [place], of [place], tel:[phone] , [place]. tel: [phone] Linda [place] Supervision of Jul-0 Milner Referring In Womens other high risk 6-201 [place]. Provider: Health PA, pregnancies, 8 700 [place] Milner PO Box third [email or web address] Medical K, 700 1522, weeks gestation [facility], of , [facility] [place], 120, Gerald 120, [id number], [place], [place], tel:[phone]. , [place]. tel: tel: [phone] [facility] Suprvsn of preg w May- Milner In Womens poor reprodctv or 1- [facility]. [facility], obstet hx, second 8 700 [facility], supr[facility]n of normal [facility], , second Gerald Richter, [email or web address] weeks 120, [id number], gestation of [facility] [place], tel:[phone] , [place]. tel: [phone] Linda [place] Suprvsn of preg w Dec-2 Milner In Womens poor reprodctv or 7- [facility]. [facility], obstet hx, second 7 700 [facility], suprvsn of normal [facility], , second Gerald Richter, [email or web address] weeks 120, [id number], gestation of [facility] [place], tel: [phone] , [place]. tel: [phone] Linda [place] Suprvsn of preg w Dec-2 Milner In Womens Ultrasound poor reprodctv or 7- [facility]. [facility], obstet hx, second 7 700 [address] tri19 weeks Medical 1522, gestation of [facility], Gerald Richter, 120, [id number], [place], tel:[phone] , [place]. tel: [phone] Linda [place] Suprvsn of preg w Nov-2 Milner Referring In Womens poor reprodctv or 1-201 [place]. Provider: Ruddy ZAMUDIO, shaynaet hx, second 7 700 [place] Milner PO Box [facility], 700 1522, suprvsn of [facility] [place], , second Dr, Gerald Center Dr RODRÍGUEZ, [email or web address] weeks 120, Gerald 120, [id number], gestation of Lazaro [place], [place] ANNE, ANNE, tel: [phone]. [id number] , [place]. tel: tel: [phone] Family History Family Member Diagnosis Age At [...] name Insurance type Covered democrat ID Authorization(s) [facility] [id number] Medicaid [employer] [place] [id number] [place] [employer] [facility] [place] [id number] Medicaid Social History Type Description Quantity Date Captured Alcohol Use Details No Caffeine Use Details Unknown Tobacco Use Status Smoking Status Former smoker Vital Signs Date / Height Weight BMI Pulse Blood Temperature Respiratory Body Head BMI Time: Rate Pressure Rate Surface Circumference percentile Area 192.50 34.1 103/2018 lbs 0 mm[Hg] 4:32 kg/m PM eter (2) Chief Complaint And Reason For Visit Unknown Chief Complaint And Reason For Visit Reason For Referral Reason For Referral Unknown Plan Of Care Date Type Action Status Appointment Kayleigh Hathaway BOOKED Future Order: Radiology Order OB Detailed Complete Ultrasound Ordered ([id number]) Date Type Problem Goal Intervention Status Start [...]
--- OUTSIDE RECORDS SUMMARY | 2017-10-09 18:04 | External Medical Summary | Continuity of Care Document ---
:1985 Author Organization [facility] Address [address] [place], [place] [id number] Phone Allergies, Adverse Reactions, Alerts Substance Reaction [...] Team Description For Visit Members Linda [place] May- Milner In Women 2-201 [place]. [employer] PA, 8 700 [address], [place], [place] [id number], [facility] 120, tel:[phone] Lazaro [phone] ANNE, [id number] , . tel: [phone] Linda [place] Suprvsn of Milner In Womens preg w poor 7-201 [place]. [employer] PA, reprodctv or 7 700 [address], obstet hx, [place], [facility] [id number], Gala Richter, Gerald for suprvsn 120, tel:[phone] of normal Lazaro, [id number] , [place], second [id number] , [place]. weeks tel: gestation of [phone] [facility] [place] Suprabyn of Milner In Womens Ultrasound preg w poor 7-201 [place]. Health PA, reprodctv or 7 700 [address], obstet hx, Medical [place], [facility] tri19 Center [id number], weeks , Gerald gestation of 120, tel:[phone] L[place] [phone] [place], [id number] , [place]. tel: [phone] [facility] Suprvsn of Milner Referring In Womens preg w poor 1-201 [place]. Provider: Health PA, reprodctv or 7 700 [place] Milner [address], obstet hx, Medical K, 700 [place], [place], [facility] [id number], Gala Richter, [facility] Dr for suprvsn 120, Gerald 120, tel:[phone] of normal Lazaro [place], [id number] , [place], [place], second [id number]. [email or web address] , [place]. tel:[phone] weeks tel: [phone] gestation of [id number] Family History Family Member Diagnosis Age At [...] name Insurance type Covered libertarian ID Authorization(s) [facility] - [id number] Medicaid [facility] - [id number] Medicaid Social History Type Description Quantity Date [...] Radiology Order OB Detailed Complete Ultrasound Ordered ([id number]) Date Type Problem Goal Intervention Status Start [...]
--- OUTSIDE RECORDS SUMMARY | 2017-10-09 18:04 | External Medical Summary | Continuity of Care Document ---
:1985 Author Organization [facility] [place] Address [address] [place], [place] [id number] Phone Allergies, Adverse Reactions, Alerts Substance Reaction [...] Team Description For Visit Members Linda [place] Milner In -2016 [place]. 700 Health PA, Medical [address], Center [place], Gerald 120, [id number], Lazaro [facility], tel:[phone], [address] [place]. tel:[phone] Linda [place] Suprvsn of Milner Referring In Womens preg w poor -2016 [place]. 700 Provider: Health PA, reprodctv or Medical [place] Milner [address], obstet , Center Ramez Richter, 700 [place], [place], second Gerald 120, Medical [id number], triEncounter L[address] PELAYO for suprvsn of [place], Gerald 120, tel:[phone] [id number], [place], [address] , [place]. [place], second tel:[phone]. [email or web address] tel:[phone] weeks [phone] gestation of Family History Family Member Diagnosis [...] older Payers Payer name Insurance type Covered constitution party ID Authorization(s) [facility] [id number] Medicaid [facility] [id number] Medicaid Social History Type Description Quantity Date [...]
[2017-10-09] MEDS ORDERED: CARBOPROST 250 MCG/ML INJECTION IM PRN (18:12)
[2017-10-09] MEDS ORDERED: MAG-AL + SIM ORAL LIQUID 30ml PO PRN (18:12)
[2017-10-09] MEDS ORDERED: CALCIUM CARBONATE Chewable 500mg TABLET PO PRN (18:12)
[2017-10-09] MEDS ORDERED: METHYLERGONOVINE 0.2 MG/ML INJECTION IM PRN (18:12)
[2017-10-09] MEDS ORDERED: SALINE FLUSH 10ml SYRINGE IV PRN (18:15)
[2017-10-09] MEDS ORDERED: ZOLPIDEM 5 MG TABLET PO PRN (18:15)
[2017-10-09] MEDS ORDERED: HYDROCODONE/APAP 5mg/325mg TABLET PO PRN (18:15)
[2017-10-09 18:22] VITALS: BMI 36.1
[2017-10-10] MEDS ORDERED: OXYTOCIN DRIP 30 UNIT/500 ML ML IV PRN (05:00)
[2017-10-10] MEDS ORDERED: D5LR 1,000 ML IV PRN (05:00)
[2017-10-10] MEDS: LR 1,000 ML IV PRN ×2 (10:30→15:26)
--- NOTE | 2017-10-10 12:07 | Anesthesia Preoperative Report ---
Anesthesia Epidural/Spinal Rec - Date and Time Date: 10/10/17 Procedure: Labor Epidural Plan: Epidural - Vital Signs NPO since: 1500 on 10/09/17 /Para: P:1 Heart Rate: 138 - Medictaions & Allergies Inpatient Medications: Current Medications Acetaminophen (Tylenol) 500 - 1,000 mg PO Q4H PRN PRN Reason: Pain Hydrocodone Bitart/Acetaminophen ([place] 5/325) 1 - 2 tab PO Q4H PRN PRN Reason: Pain Al Hydroxide/Mg Hydroxide (Maalox Plus) 30 ml PO Q3H PRN PRN Reason: Indigestion Calcium Carbonate (Tums) 500 - 1,000 mg PO Q2H PRN PRN Reason: Indigestion Carboprost Tromethamine (Hemabate) 250 mcg IM O PRN PRN Reason: .Downtime Lactated Ringer's (Lactated Ringers) 1,000 mls @ 999 mls/hr IV .Q1H1M PRN Oxytocin (Pitocin Drip) 30 unit in 500 mls @ 2 mls/hr IV .Q24H PRN; Protocol PRN Reason: Induction/Augmentation Dextrose/Lactated Ringer's (Dextrose 5%-Lactated Ringers) 1,000 mls @ 125 mls/ hr IV .Q8H PRN PRN Reason: Labor Methylergonovine Maleate (Methergine) 0.2 mg IM O PRN Misoprostol (Cytotec) 800 mcg VA ONCE PRN Sodium Chloride (Iv Flush) 10 - 80 ml IV PRN PRN PRN Reason: Flushing Zolpidem Tartrate (Ambien) 5 mg PO O PRN PRN Reason: Insomnia Last Admin: 10/09/17 23:54 Dose: 5 mg Allergies/Adverse Reactions: Allergies Allergy/AdvReac Type Severity Reaction Status Date / Time No Known Allergies Allergy Verified 10/09/17 18:23 - Home Medications Home Medications: Home Medications Medication Instructions Recorded Confirmed Type No known Home medications [No home 10/09/17 10/09/17 History meds] - Medical History Gastrointestional: Reports: Gastroesophageal Reflux Disease, Morbid Obesity Other History: Reports: Now (39 weeks) - Surgical History Reproductive Surgery/Treatment: Reports: Breast Augmentation/Reduction DENIES: Section Anesthesia Reactions: None Hx Family Anesthesia Reaction: No History of Motion Sickness: No - Social History Smoking Status: Never smoker Second Hand Exposure: No Substance Use Type: does not use Alcohol Intake Frequency: does not drink - Pertinent Findings Lab Data: CBC and BMP 10/09/17 18:23 - Physical Exam Respiratory Exam: lungs clear, bilateral breath sounds equal Cardiovascular Exam: regular rate and rhythm - Airway Assessment Mallampati Score: II TMD: 3 Fingerbreadths Neck Extension: good Overall Assessment: no airway concerns - ASA ASA Score: 2 - Discussion Discussion: Discussed risks/options/alternatives of anesthesia and questions answered. Patient consents. Nursing pain assessment noted. Anesthesia Discussion: family member Attestation Statement: Prior to the delivery of any anesthetic medication, I examined the patient, developed the plan, obtained the patient's consent and discussed the risk and benefits of the procedure with the patient/guardian.
[2017-10-10] MEDS ORDERED: ROPIVACAINE 1% 10MG/ML INJ 200 MG, SUFentanil 50 MCG in NS 100 ML EPI PRN (14:00)
[2017-10-10] MEDS ORDERED: ONDANSETRON 4 MG/2 ML INJECTION IVP PRN (14:00)
[2017-10-10] MEDS ORDERED: NALOXONE 0.4 MG/ML INJECTION IVP PRN (14:00)
[2017-10-10] MEDS ORDERED: DiphenhydrAMINE 50 MG/ML INJECTION IVP PRN (14:00)
[2017-10-10] MEDS ORDERED: HYDROCORTISONE 2.5% CREAM 30gm RECTALLY PRN (17:34)
[2017-10-10] MEDS ORDERED: DiphenhydrAMINE 25 MG CAPSULE PO PRN (17:34)
[2017-10-10] MEDS ORDERED: MAG-AL + SIM ORAL LIQUID 30ml PO PRN (17:34)
[2017-10-10] MEDS ORDERED: OXYTOCIN DRIP 30 UNIT/500 ML ML IV SCH (17:45)
--- NOTE | 2017-10-10 18:13 | Labor and Delivery Note ---
DATE OF DELIVERY 10/10/2017 NORBERTO Victor is a 31-year-old 6, para 1-1-3-1 at 39 weeks gestational age who came in last evening for a Clifford bulb cervical ripening due to logistics. This morning she was started on Pitocin. Her membranes were ruptured artificially, returning clear fluids. She received an epidural. She progressed steadily throughout labor and only pushed for a short period of time. The head delivered in the KAYLEE position. A nuchal cord x 1 was reduced. The remainder of the body was delivered. Baby was vigorous at delivery so she was placed on mom's abdomen and the cord clamping was delayed for more than two minutes. The placenta delivered spontaneously. She had a vein at the perineum that was torn and bleeding so this was repaired with a [id number] of 2-0 chromic. Good hemostasis was noted. Baby is a viable female infant, Apgars 7/9, weight 2903 g , name "Janneth." Mom and baby tolerated the delivery well. NHUNGD
[2017-10-10] MEDS: IBUPROFEN 800 MG TABLET PO PRN (19:58)
--- NOTE | 2017-10-10 22:38 | Anesthesia Postoperative Note ---
- Date and Time Date: 10/10/17 Time: 22:37 - Status Patient Participated in Evaluation: Patient Participated in Person Vital Signs: Temperature 98.0 F 10/10/17 21:59 Pulse Rate 63 10/10/17 21:59 Respiratory Rate 18 10/10/17 21:59 Blood Pressure 92/55 10/10/17 21:59 Pulse Oximetry 100 10/10/17 21:59 Respiratory Function: Airway Patent, Regular Respirations Cardiovascular Function: Regular Pulse Mental Status: Alert and Oriented Pain Intensity: 0 Hydration: Taking PO Fluids Complications During Recover: None Apparent - Follow-Up Instructions Instructions: Per Surgeon
[2017-10-11] MEDS: DOCUSATE CALCIUM 240 MG CAPSULE PO SCH ×2 (06:40→12:21)
[2017-10-11] MEDS: IBUPROFEN 800 MG TABLET PO PRN ×2 (06:40→17:35)
--- NOTE | 2017-10-11 08:18 | OB/GYN Progress Note ---
OB-PP Progress Note - General PPD1 Maternal Group B Strep: Negative Maternal blood type: B+ Maternal Rubella Status: Immune - Subjective Date: 10/11/17 Lochia: Moderate Pain: controlled Voiding: voiding Nausea or Vomiting Present: No - Objective Vital Signs: Last Vital Signs Temp 97.5 F 10/11/17 06:40 Pulse 64 10/11/17 06:40 Resp 16 10/11/17 06:40 BP 101/67 10/11/17 06:40 Pulse Ox 98 10/11/17 06:40 General: alert and oriented Respiratory: non-labored Abdomen: fundus firm Extremities: non-tender Side: bilateral Site: ankle, foot Edema Degree: 1+ - Assessment (1) Vaginal delivery Status: Acute - Assessment Assessment: SP, DEEPALI - Plan Plan: routine care, discharge home Expected date of discharge: 10/11/17
[2017-10-11] MEDS: ACETAMINOPHEN 500 MG TABLET PO PRN ×2 (12:20→17:35)
[2017-10-11 17:46] VITALS: BP 113/76; PULSE 66; RESP 18; TEMP 98; O2SAT 100
== END 2017-10-11 19:20 | disposition home or self-care (01) | DRG 775 ==
LOC: MC 17:50
PROVIDERS: ADMIT Obstetrics & Gynecology; ATTEND Obstetrics & Gynecology